=== PATIENT | female | born 1960 | race Caucasian/White ===

== ENCOUNTER → 2023-11-04 | Outpatient (REF) | payer MEDICARE, OTHER, SELFPAY | LOC: DHSLP | PROVIDERS: ATTENDING PHYSICIAN Internal Medicine Critical Care Medicine; FAMILY PHYSICIAN Physician Assistant Medical | DX: G47.33 Obstructive sleep apnea (adult) (pediatric) (principal) | CPT/HCPCS: 95800 ==

== ENCOUNTER 2023-11-19 19:37 | Emergency (ER) | payer MEDICARE, OTHER, SELFPAY ==
[2023-11-19 19:39] VITALS: BP 160/97
[2023-11-19 21:00] LABS: % Eosinophils 1.5 % (0-6); % Immature Granulocytes 0.3 % (0-0.5); % Lymphocytes 49.9 % (20.5-51.1); % Monocytes 7.9 % (1.7-9.3); % Neutrophils 39.4 % (42.2-75.2); Absolute Basophils 0.1 10^3/uL (0-0.2); Absolute Eosinophils 0.1 10^3/uL (0-0.7); Absolute Lymphocytes 3.1 10^3/uL (1.2-3.4); Absolute Monocytes 0.5 10^3/uL (0.1-0.6); Absolute Neutrophils 2.4 10^3/uL (1.4-6.5); Hematocrit 43.5 % (37.0-47.0); Hemoglobin 15.1 g/dL (12.0-16.0); Mean Corp Hgb Conc. 34.7 g/dL (33.0-37.0); Mean Corpuscular Hgb 30.8 pg (27.0-31.0); Mean Corpuscular Volume 88.8 fL (81.0-99.0); Nucleated Red Blood Cells % 0 %; Platelet Count 359 10^3/uL (130-400); Red Cell Dist. Width 13.4 % (11.5-14.5); White Blood Cell Count 6.2 10^3/uL (4.8-10.8)
[2023-11-19 21:13] LABS: ALT (SGPT) 21 U/L (0-35); AST (SGOT) 31 U/L (14-36); Albumin 5.6 g/dl (3.5-5.0); Alkaline Phosphatase 109 U/L (38-126); Blood Urea Nitrogen 13 mg/dl (7-17); Carbon Dioxide 25 mmol/L (22-30); Chloride 102 mmol/L (98-107); Glucose 102 mg/dl (70-99); Potassium 5.1 mmol/L (3.5-5.1); Sodium 136 mmol/L (135-145); Total Bilirubin 0.7 mg/dl (0.2-1.3); Total Protein 8.9 g/dl (6.3-8.2); eGFR > 60.00
[2023-11-19 21:26] LABS: Troponin I < 0.012 ng/ml
[2023-11-19 21:52] VITALS: BMI 28.3
[2023-11-19 21:58] VITALS: BP 132/97
[2023-11-19] MEDS: TYLENOL 1000 MG PO (22:14)
--- NOTE | 2023-11-19 22:23 | ED.GENMED ---
History of Present Illness
General
Chief Complaint: Blood Pressure Problem
Source: patient
Exam Limitations: none
Time Seen by Provider: 11/19/23 21:35
Travel History
Have you had any contact with someone who has COVID-19?: No
Do you have any symptoms of coronavirus? Fever > 100 degrees, chills, cough, shortness of breath, sore throat, loss of taste or smell, muscle aches, or headache?: No
History of Present Illness
History of Present Illness:
This is a 63 year old female that comes in with c/o left sided neck pain and high BP. States that yesterday she had a sore throat and left sided neck pain. State that her BP was also elevated. States that it went away. Then today the neck pain came
back and her BP was elevated. State that she has had the neck pain all day. States that her headache is in the back of her head. Denies any fever, chills, chest pain, SOB, abd pain, nausea, vomiting, diarrhea, dizziness, urinary burning.
Past History
Past History
ED Past Medical History: HTN, Seizures, Hypothyroidism and Other (Sleep apnea)
ED Past Surgical History: Tonsilectomy
Social History
Tobacco: Non-smoker
Alcohol: None
Drug: None
Personal:
Living: with family
Review of Systems
Review of Systems
All Other Systems: ROS reviewed and negative except as documented in HPI and ROS
Constitutional: Reports no symptoms; Denies fever or chills
EENT: Reports no symptoms
Respiratory: Reports no symptoms; Denies cough or trouble breathing
Cardiac: Reports no symptoms; Denies chest pain
ABD/GI: Reports no symptoms; Denies abdominal pain, nausea, vomiting or diarrhea
: Reports no symptoms; Denies dysuria, frequency or urgency
Musculoskeletal: Reports neck pain (left sided)
Skin: Reports no symptoms
Neurological: Reports headache; Denies dizzy
Psychiatric: Reports no symptoms
Phy Exam
General Physical Exam
General Presentation: well appearing and no apparent distress
General age: appears stated age
General Skin: warm and dry
General Habitus: normal
General Mental: alert
General Hydration: appears well hydrated
ENT Exam
ENT Exam: TM's normal, pharynx normal and neck supple
Eye Exam
Eye Exam: EOMI
Cardiovascular Exam
Cardiovascular Exam: regular rate/rhythm, no edema, no murmur and normal peripheral pulses
Pulmonary Exam
Pulmonary Exam: lungs clear, no respiratory distress, no rales, chest non tender, no crackles, no rhonchi, no wheezing and no cough
Gastrointestinal Exam
Gastrointestinal Exam: normal bowel sounds, non tender, soft, no organomegaly, no pulsatile mass and non distended
Musculoskeletal Exam
Musculoskeletal Exam: full ROM and no edema
Skin Exam
Skin Exam: normal color, warm/dry, no rash and no petechia
Psychiatric Exam
Psychiatric Exam: normal mood/affect
Course
Orders/Labs/Results
Orders:
Orders
11/19/23 19:41
EKG [Electrocardiogram (*1)] Urgent
Reason for Study: Hypertension, Benign
EKG- Treatment ONCE
11/19/23 20:38
Complete Blood Count/With Diff Urgent
Comprehensive Metabolic Panel Urgent
Troponin I Urgent
11/19/23 21:51
CT Head W/o Iv Contrast Urgent
Comment:
Reason For Exam: Headache
11/19/23 22:07
Acetaminophen [Tylenol] 1,000 mg .ROUTE .STK-MED ONE
11/19/23 22:08
Acetaminophen [Tylenol] 1,000 mg PO NOW STA
Abnormal Lab Results
11/19/23
20:38
Neutrophils % 39.4 L %
(42.2-75.2)
Glucose 102 H mg/dl
(70-99)
Calcium 11.0 H mg/dl
(8.4-10.2)
Total Protein 8.9 H g/dl
(6.3-8.2)
Albumin 5.6 H g/dl
(3.5-5.0)
11/19/23 20:38
11/19/23 20:38
Glucose nonfasting. Total protein slightly elevated. Albumin slightly elevated. Troponin <0.012
Vital Signs
Initial and Last Documented VS:
Initial Vital Signs
Pulse Resp BP Pulse Ox
81 18 160/97 100
11/19/23 19:39 11/19/23 19:39 11/19/23 19:39 11/19/23 19:39
Last Documented Vital Signs
Temp Pulse Resp BP Pulse Ox
98.4 F 78 18 132/97 98
11/19/23 19:40 11/19/23 21:48 11/19/23 21:48 11/19/23 21:58 11/19/23 21:48
MDM/Problems Addressed
Differential Diagnosis Includes:
Muscle spasm neck, Headache
MDM/Problems Addressed:
This is a 63 year old female that comes in with c/o left sided neck pain and a headache. States that she had this yesterday and it went away. Then it came back today. States that her BP went up and this made her anxious.
Will check labs. CT head. Medicate for pain.
Back into see patient. Explained that her blood work shows her Total protein is slightly elevated and her Troponin is normal. CT of the head is normal. Patient states that her neck pain feels better and that is feels like a stiff neck. Encouraged
patient use Tylenol 1000mg every 6 hours for pain. Follow up with the family doctor. State that she has an appointment with the Food Service Specialist on Tuesday. patient to return with any concerns.
Chronic conditions affecting care: HTN
Acute Exacerbation and/or Progression of Chronic Illness: HTN
*Radiology
Radiology exam reviewed: radiology read reviewed (CT head [place]- No acute intracranial process. No intracranial bleed. No calvarial fracture. Prominent Perivascular space in the region of the left basal ganglia. )
*Pulse Oximetry
Patient hypoxic: no
*EKG
Interpreted by ED Provider?: Yes
Heart Rate: 81
Rate: normal
Rhythm: sinus
[place]: left axis deviation
QRS Pattern: right bundle branch block (iNCOMPLETE)
Ischemia: no ischemia
*Grinder Set Up Operator Centerless Interpretation
Rate: Grinder Set Up Operator Centerless- N/A
*Critical Care Note
Total Time (30-74mins, 75-104mins- exclusive of procedures): Not Applicable
ED Attending Note
-
Portions of this chart may have been created with voice recognition software.� Occasional wrong word or��sound alike� substitutions may have occurred due to the inherent limitations of voice recognition software.
Discharge Plan
Departure
Patient Disposition: Home (Routine Discharge)
Date of Disposition: 11/19/23
Time of Disposition: 22:37
Patient with high blood pressure during this ER visit?: Yes
Condition: Good
Covid-19: Not Applicable
Discharge Problem:
Stiff neck, Headache
Instructions: Headache, Adult (DC), BLOOD PRESSURE, Musculoskeletal Pain
Prescriptions:
No Action
levothyroxine 88 mcg Tablet
88 mcg PO DAILY
lamotrigine 100 mg Tablet
100 mg PO .DAILYINAM
lamotrigine 100 mg Tablet
150 mg PO HS
valsartan 160 mg Tablet
160 mg PO DAILY
Activity Restrictions/Additional Instructions:
As discussed, your CT of the head is normal. Your blood work is normal. This is most likely a stiff neck and will go away on its own. You my use Tylenol 1000mg every 6 hours for pain. Heat or ice to the neck which ever make you feel better. Follow
up with the family doctor for recheck. IF YOU HAVE ANY OTHER CONCERNS PLEASE RETURN TO THE EMEGENCY ROOM
Interventions
Interventions:
*Risk Screen - Suicide Last Done: 11/19/23 21:52
*General Assessment Last Done: 11/19/23 21:52
*Neglect/Abuse Screening Last Done: 11/19/23 21:52
*ED COVID-19 Vaccine History Last Done: 11/19/23 21:52
Discharge Date and Time
Print Language: EGYPTIAN
== END 2023-11-19 22:54 | disposition home or self-care (01) ==
LOC: EMR 19:37
PROVIDERS: Emergency Medicine; EMERGENCY PHYSICIAN Emergency Medicine; FAMILY PHYSICIAN Physician Assistant Medical
DX: M43.6 Torticollis (principal); R51.9 Headache, unspecified; I10 Essential (primary) hypertension
CPT/HCPCS: 99285; 70450; 80053; 84484; 85025; 93005

== ENCOUNTER → 2023-11-25 09:07 | Outpatient (REF) | payer MEDICARE, OTHER, SELFPAY | LOC: HWRCS 09:07 | PROVIDERS: ATTENDING PHYSICIAN Internal Medicine Cardiovascular Disease; FAMILY PHYSICIAN Physician Assistant Medical | DX: I10 Essential (primary) hypertension (principal) | CPT/HCPCS: 93306 ==

== ENCOUNTER → 2023-12-08 09:00 | Outpatient (REF) | payer MEDICARE, OTHER, SELFPAY | LOC: RCS 09:00 | PROVIDERS: ATTENDING PHYSICIAN Internal Medicine Cardiovascular Disease; FAMILY PHYSICIAN Physician Assistant Medical | DX: I10 Essential (primary) hypertension (principal); R07.89 Other chest pain | CPT/HCPCS: 93017; 93350 ==

== ENCOUNTER → 2023-12-16 10:35 | Outpatient (REF) | payer MEDICARE, OTHER, SELFPAY | LOC: HWRAD 10:35 | PROVIDERS: ATTENDING PHYSICIAN Physician Assistant Medical | DX: Z13.820 Encounter for screening for osteoporosis (principal); Z78.0 Asymptomatic menopausal state | CPT/HCPCS: 77080 ==

== ENCOUNTER → 2024-01-11 08:12 | Outpatient (REF) | payer MEDICARE, OTHER, SELFPAY | LOC: DHCBC/DCA 08:12 | PROVIDERS: ATTENDING PHYSICIAN Internal Medicine Cardiovascular Disease; FAMILY PHYSICIAN Physician Assistant Medical | DX: R07.89 Other chest pain (principal); I10 Essential (primary) hypertension | CPT/HCPCS: 78452; 93017; A9500; J2785 ==

== ENCOUNTER → 2024-01-13 08:35 | Outpatient (REF) | payer MEDICARE, OTHER, SELFPAY | LOC: RAD 08:35 | PROVIDERS: ATTENDING PHYSICIAN Internal Medicine Cardiovascular Disease; FAMILY PHYSICIAN Physician Assistant Medical | DX: I65.23 Occlusion and stenosis of bilateral carotid arteries (principal) | CPT/HCPCS: 93880 ==

== ENCOUNTER → 2024-02-27 07:55 | Outpatient (REF) | payer MEDICARE, OTHER, SELFPAY | LOC: WDC 07:55 | PROVIDERS: ATTENDING PHYSICIAN Obstetrics & Gynecology; FAMILY PHYSICIAN Physician Assistant Medical | DX: R92.2 Inconclusive mammogram (principal) | CPT/HCPCS: 76641 ==

== ENCOUNTER → 2024-06-12 09:53 | Outpatient (REF) | payer MEDICARE, OTHER, SELFPAY | LOC: HWWDC 09:53 | PROVIDERS: ATTENDING PHYSICIAN Physician Assistant Medical | DX: Z12.31 Encounter for screening mammogram for malignant neoplasm of breast (principal) | CPT/HCPCS: 77063; 77067 ==

== ENCOUNTER → 2024-08-28 07:57 | Outpatient (REF) | payer MEDICARE, OTHER, SELFPAY | LOC: WDC 07:57 | PROVIDERS: ATTENDING PHYSICIAN Physician Assistant Medical | DX: R92.8 Other abnormal and inconclusive findings on diagnostic imaging of breast (principal) | CPT/HCPCS: 76642 ==

== ENCOUNTER 2024-09-23 15:09 | Emergency (ER) | payer MEDICARE, OTHER, SELFPAY ==
[2024-09-23 15:12] VITALS: BP 148/89
[2024-09-23 15:47] LABS: % Basophils 0.9 % (0-2); % Eosinophils 0.9 % (0-6); % Immature Granulocytes 0.3 % (0-0.5); % Lymphocytes 36.6 % (20.5-51.1); % Monocytes 8.8 % (1.7-9.3); % Neutrophils 52.5 % (42.2-75.2); Absolute Basophils 0.1 10^3/uL (0-0.2); Absolute Eosinophils 0.1 10^3/uL (0-0.7); Absolute Lymphocytes 2.3 10^3/uL (1.2-3.4); Absolute Monocytes 0.6 10^3/uL (0.1-0.6); Absolute Neutrophils 3.4 10^3/uL (1.4-6.5); Hematocrit 44.2 % (37.0-47.0); Mean Corp Hgb Conc. 33.9 g/dL (33.0-37.0); Mean Corpuscular Hgb 31.6 pg (27.0-31.0); Mean Corpuscular Volume 93.1 fL (81.0-99.0); Mean Platelet Volume 8.9 fL (7.4-10.4); Nucleated Red Blood Cells % 0 %; Platelet Count 356 10^3/uL (130-400); Red Blood Cell Count 4.75 10^6/uL (4.20-5.40); Red Cell Dist. Width 13.8 % (11.5-14.5); White Blood Cell Count 6.4 10^3/uL (4.8-10.8)
[2024-09-23 16:01] LABS: ALT (SGPT) 18 U/L (0-35); AST (SGOT) 20 U/L (14-36); Albumin 5.6 g/dl (3.5-5.0); Alkaline Phosphatase 106 U/L (38-126); Blood Urea Nitrogen 9 mg/dl (7-17); Calcium 10.4 mg/dl (8.4-10.2); Carbon Dioxide 28 mmol/L (22-30); Chloride 101 mmol/L (98-107); Glucose 143 mg/dl (70-99); Lipase 140 U/L (23-300); Potassium 4.9 mmol/L (3.5-5.1); Sodium 141 mmol/L (135-145); Total Bilirubin 0.8 mg/dl (0.2-1.3); Total Protein 8.6 g/dl (6.3-8.2); eGFR > 60.00
[2024-09-23 16:11] LABS: Troponin I < 0.012 ng/ml
[2024-09-23 16:15] VITALS: BP 141/105
[2024-09-23] MEDS: MAALOX 50 PO (16:50)
[2024-09-23 16:54] VITALS: BMI 24.0
[2024-09-23 17:00] VITALS: BP 136/100
--- NOTE | 2024-09-23 18:52 | ED.GENMED ---
History of Present Illness
General
Chief Complaint: Abdominal Symptoms
Source: patient
Exam Limitations: none
Time Seen by Provider: 09/23/24 16:17
History of Present Illness
History of Present Illness:
63-year-old female presents with increased indigestion and epigastric abdominal discomfort. She has a history of a hiatal hernia. Her symptoms feel similar but they worsened today. She denies chest pain. No fevers. She has belching but no
vomiting. The pain is fairly constant. No other complaints at this time
Past History
Past History
ED Past Medical History: HTN, Seizures, Hypothyroidism and Other (Sleep apnea)
ED Past Surgical History: Tonsilectomy
Social History
Tobacco: Non-smoker
Alcohol: None
Drug: None
Personal:
Living: with family
Phy Exam
Physical Exam
Physical Exam:
General: Well-appearing female no acute respiratory distress HEENT: Normocephalic atraumatic neck is
Heart: Regular rate and rhythm no murmurs
Lungs: Clear no wheeze
Abdomen is soft mild epigastric tenderness no guarding or rebound normal bowel sounds nondistended
Extremities: Dorsalis
Course
Orders/Labs/Results
Orders:
Orders
09/23/24 15:16
Electrocardiogram (*1) Urgent
Reason for Study: Other
Other Reason for Exam: indigestion
EKG- Treatment ONCE
09/23/24 15:30
Complete Blood Count/With Diff Urgent
Comprehensive Metabolic Panel Urgent
Lipase Urgent
Troponin I Urgent
09/23/24 16:27
CR Chest - 2 Views Urgent
Comment:
Reason For Exam: chest pain
US Abdomen Complete/Upper Urgent
Comment:
Reason For Exam: epigastric pain
09/23/24 16:30
Mag Hydrox/Al Hydrox/Simeth [Maalox] 30 ml Phenobarb/Hyoscy/Atropine/Scop [] 10 ml Viscous Lidocaine 2% [Xylocaine Viscous Cup] 10 ml PO NOW
09/23/24 16:47
Mag Hydrox/Al Hydrox/Simeth [Maalox] 30 ml .ROUTE .STK-MED ONE
Phenobarb/Hyoscy/Atropine/Scop [] 10 ml .ROUTE .STK-MED ONE
09/23/24 16:48
Viscous Lidocaine 2% [Xylocaine Viscous Cup] 15 ml .ROUTE .STK-MED ONE
Abnormal Lab Results
09/23/24
15:30
MCH 31.6 H pg
(27.0-31.0)
Glucose 143 H mg/dl
(70-99)
Calcium 10.4 H mg/dl
(8.4-10.2)
Total Protein 8.6 H g/dl
(6.3-8.2)
Albumin 5.6 H g/dl
(3.5-5.0)
09/23/24 15:30
09/23/24 15:30
Vital Signs
Initial and Last Documented VS:
Initial Vital Signs
Temp Pulse Resp BP Pulse Ox
98.1 F 110 20 148/89 99
09/23/24 15:12 09/23/24 15:12 09/23/24 15:12 09/23/24 15:12 09/23/24 15:12
Last Documented Vital Signs
Temp Pulse Resp BP Pulse Ox
98.1 F 110 20 134/87 97
09/23/24 15:12 09/23/24 15:12 09/23/24 15:12 09/23/24 19:21 09/23/24 19:45
MDM/Problems Addressed
Differential Diagnosis Includes:
Epigastric abdominal disc with reflux symptoms. Patient has a history of hiatal hernia. Do not suspect ACS in the absence of chest pain. These are similar to her symptoms she has had in the past related to her hernia and this is likely an
extension. Will try going grab her ultrasound of abdomen and x-ray of chest.
*Critical Care Note
Total Time (30-74mins, 75-104mins- exclusive of procedures): Not Applicable
Update Note
Update Note:
Ultrasound shows large gallstone without evidence of cholecystitis. Liver functions are normal chest x-ray is clear. Patient received some relief with green grabber. I suspect symptoms are related to reflux and secondarily may be related to her
hiatal hernia. no indication for admission. Did advise to continue her PPI at home and will continue to follow-up with GI as planned.
ED Attending Note
-
Portions of this chart may have been created with voice recognition software.� Occasional wrong word or��sound alike� substitutions may have occurred due to the inherent limitations of voice recognition software.
Discharge Plan
Departure
Patient Disposition: Home (Routine Discharge)
Date of Disposition: 09/23/24
Time of Disposition: 20:09
Patient with high blood pressure during this ER visit?: No
Discharge Problem:
Abdominal pain
Instructions: Abdominal Pain
Prescriptions:
No Action
levothyroxine 88 mcg Tablet
88 mcg PO DAILY
lamotrigine 100 mg Tablet
100 mg PO .DAILYINAM
lamotrigine 100 mg Tablet
150 mg PO HS
valsartan 160 mg Tablet
160 mg PO DAILY
Referrals:
Mariann Pelaez PA [Family Provider] -
Activity Restrictions/Additional Instructions:
Continue with your antacid at home. Eat a bland diet. Return here for worsening symptoms otherwise continue to follow-up with GI
Interventions
Interventions:
*Risk Screen - Suicide Last Done: 09/23/24 16:55
*General Assessment Last Done: 09/23/24 15:12
*Neglect/Abuse Screening Last Done: 09/23/24 16:55
ED- Fall Risk Assessment Last Done: 09/23/24 16:57
*ED COVID-19 Vaccine History Last Done: 09/23/24 16:55
NQ-Bilbyb-Kqwwzaauiq Assessment Last Done: 09/23/24 16:57
Discharge Date and Time
Print Language: LAO
[2024-09-23 19:21] VITALS: BP 134/87
[2024-09-23 20:00] VITALS: BP 119/88
[2024-09-23 21:08] VITALS: BP 126/96
== END 2024-09-23 21:20 | disposition home or self-care (01) ==
LOC: EMR 15:09
PROVIDERS: Emergency Medicine; EMERGENCY PHYSICIAN Emergency Medicine; FAMILY PHYSICIAN Physician Assistant Medical
DX: R10.13 Epigastric pain (principal); K44.9 Diaphragmatic hernia without obstruction or gangrene; I10 Essential (primary) hypertension; E03.9 Hypothyroidism, unspecified; G47.30 Sleep apnea, unspecified
CPT/HCPCS: 99284; 71046; 76700; 80053; 83690; 84484; 85025; 93005

== ENCOUNTER 2024-11-25 15:02 | Emergency (ER) | payer MEDICARE, OTHER, SELFPAY ==
[2024-11-25 15:26] VITALS: BP 141/102
--- NOTE | 2024-11-25 16:35 | ED.GENMED ---
History of Present Illness
General
Chief Complaint: Crisis Evaluation
Source: patient
Exam Limitations: none
Time Seen by Provider: 11/25/24 15:53
Nursing documentation reviewed up to this point in time: agreed with
History of Present Illness
History of Present Illness:
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
some decrease in her help at home with her spouse, evaluate the patient is resting comfortably in the crisis room Marilynn spoke with the homeworker states she is feeling better, denies any hallucinations suicidal or homicidal thoughts at this time
Past History
Past History
ED Past Medical History: HTN, Seizures, Hypothyroidism and Other (Sleep apnea)
ED Past Surgical History: Tonsilectomy
Social History
Tobacco: Non-smoker
Alcohol: None
Drug: None
Personal:
Living: with family
Employment: Other (Homemaker)
Review of Systems
Review of Systems
All Other Systems: Not applicable
Respiratory: Reports no symptoms
Cardiac: Reports no symptoms
ABD/GI: Reports no symptoms
Psychiatric: Reports anxiety; Denies depression, suicidal or hallucinations
Phy Exam
Physical Exam
Physical Exam:
Physical Exam
General: Pleasant 64 female
Neck: No jaundice no obvious goiter
Heart: Regular
Lungs: no acute respiratory distress.
Neuro: alert and oriented. no focal neurological deficits
Skin: no rash
Psychiatric: Cooperative not hallucinating denies homicidal or suicidal thoughts clear clear speech
Extremities: no edema.
Course
Orders/Labs/Results
Orders:
Orders
11/25/24 15:56
Crisis Consult Urgent
Reason for Consult: homicidal ideation
Vital Signs
Initial and Last Documented VS:
Initial Vital Signs
Temp Pulse Resp BP Pulse Ox
98.5 F 98 18 141/102 99
11/25/24 15:26 11/25/24 15:26 11/25/24 15:26 11/25/24 15:26 11/25/24 15:26
Last Documented Vital Signs
Temp Pulse Resp BP Pulse Ox
98.5 F 98 18 141/102 99
11/25/24 15:26 11/25/24 15:26 11/25/24 15:26 11/25/24 15:26 11/25/24 15:26
MDM/Problems Addressed
Differential Diagnosis Includes:
Depression anxiety mental illness
MDM/Problems Addressed:
Thoughts of harming others fleeting anxious
*Critical Care Note
Total Time (30-74mins, 75-104mins- exclusive of procedures): Not Applicable
Update Note
Update Note:
Update patient cooperative here not intoxicated appears to have a clear thought process, denies any thoughts when to harm herself or others at this time reviewed with crisis outpatient resources given to her
ED Attending Note
-
Portions of this chart may have been created with voice recognition software.� Occasional wrong word or��sound alike� substitutions may have occurred due to the inherent limitations of voice recognition software.
Discharge Plan
Departure
Patient Disposition: Home (Routine Discharge)
Date of Disposition: 11/25/24
Time of Disposition: 16:38
Patient with high blood pressure during this ER visit?: No
Condition: Good
Discharge Problem:
Anxiety
Instructions: Anxiety, Adult (DC)
Prescriptions:
No Action
levothyroxine 88 mcg Tablet
88 mcg PO DAILY
lamotrigine 100 mg Tablet
100 mg PO .DAILYINAM
lamotrigine 100 mg Tablet
150 mg PO HS
valsartan 160 mg Tablet
160 mg PO DAILY
Interventions
Interventions:
*Risk Screen - Suicide Last Done: 11/25/24 15:26
*General Assessment Last Done: 11/25/24 15:26
*Neglect/Abuse Screening Last Done: 11/25/24 15:26
*ED- Fall Risk Assessment Last Done: 11/25/24 15:26
*ED COVID-19 Vaccine History Last Done: 11/25/24 15:26
Discharge Date and Time
Print Language: [place]
[2024-11-25 16:49] VITALS: BP 149/95
== END 2024-11-25 16:50 | disposition home or self-care (01) ==
LOC: EMR 15:02
PROVIDERS: EMERGENCY PHYSICIAN Emergency Medicine
DX: F41.9 Anxiety disorder, unspecified (principal); E03.9 Hypothyroidism, unspecified; G47.30 Sleep apnea, unspecified; I10 Essential (primary) hypertension
CPT/HCPCS: 99283

== ENCOUNTER 2024-12-03 06:19 | Day surgery (SDC) | payer MEDICARE, OTHER, SELFPAY | END 2024-12-03 09:48 | disposition home or self-care (01) | LOC: GI 06:19 | PROVIDERS: ATTENDING PHYSICIAN Internal Medicine Gastroenterology | DX: K29.70 Gastritis, unspecified, without bleeding (principal); F45.8 Other somatoform disorders; K44.9 Diaphragmatic hernia without obstruction or gangrene; K21.9 Gastro-esophageal reflux disease without esophagitis; K29.50 Unspecified chronic gastritis without bleeding | CPT/HCPCS: 43239; 88305; 88342 ==

== ENCOUNTER → 2025-02-19 08:00 | Outpatient (REF) | payer MEDICARE, OTHER, SELFPAY | LOC: WDC 08:00 | PROVIDERS: ATTENDING PHYSICIAN Obstetrics & Gynecology | DX: R92.2 Inconclusive mammogram (principal) | CPT/HCPCS: 76641 ==

== ENCOUNTER → 2025-08-02 14:35 | Outpatient (REF) | payer MEDICARE, OTHER, SELFPAY | LOC: HWRAD 14:35 | PROVIDERS: ATTENDING PHYSICIAN Physician Assistant Medical | DX: E03.9 Hypothyroidism, unspecified (principal); E01.0 Iodine-deficiency related diffuse (endemic) goiter | CPT/HCPCS: 76536 ==

== ENCOUNTER → 2025-08-18 07:56 | Outpatient (REF) | payer MEDICARE, OTHER, SELFPAY | LOC: DHSLP 07:56 | PROVIDERS: ATTENDING PHYSICIAN Student in an Organized Health Care Education/Training Program; FAMILY PHYSICIAN Physician Assistant Medical | DX: G47.33 Obstructive sleep apnea (adult) (pediatric) (principal); R06.83 Snoring; R09.02 Hypoxemia | CPT/HCPCS: 95806 ==

== ENCOUNTER → 2025-08-20 08:47 | Outpatient (REF) | payer MEDICARE, OTHER, SELFPAY | LOC: HWRAD 08:47 | PROVIDERS: ATTENDING PHYSICIAN Physician Assistant Medical | DX: E04.1 Nontoxic single thyroid nodule (principal); R22.1 Localized swelling, mass and lump, neck | CPT/HCPCS: 70490 ==